=== PATIENT | male | born 1975 | race Caucasian/White ===

== ENCOUNTER 2022-12-20 20:05 | Emergency (ER) | payer OTHER ==
[2022-12-20 20:16] VITALS: BP 146/97; PULSE 75; RESP 16; TEMP 97.7; BMI 31.5
[2022-12-20] MEDS ORDERED: SODIUM CHLORIDE 1,000 ML IV ONE (20:39)
[2022-12-20] MEDS ORDERED: ACETAMINOPHEN INJECTION 100 ML IVPB ONE (20:39)
[2022-12-20] MEDS ORDERED: ACETAMINOPHEN 1000 MG/100 ML BAG IVPB ONE (20:39)
[2022-12-20 20:52] LABS: HEMOGLOBIN 14.4 G/dL (11.7-16.9); MCH 31.7 pg (25.7-33.7); MCHC 35.9 g/dl (32.0-35.9); MEAN PLT VOLUME 8.2 fl (7.5-11.1); PLATELET COUNT 160.5 10^3/uL (134-434); RBC 4.54 10^6/uL (4.00-5.60); RDW 13.1 % (11.9-15.9); WHITE BLOOD COUNT 8.5 10^3/uL (4.0-10.8)
[2022-12-20 21:09] LABS: ALBUMIN 4.1 g/dl (3.4-5.0); BILIRUBIN,TOTAL 0.8 mg/dl (0.2-1); TOT PROT 7.2 g/dl (6.4-8.2)
[2022-12-20] MEDS ORDERED: PIPERACILLIN/TAZOB 4.5 GM 4.5 GM in DEXTROSE 5%-WATER 100 ML IVPB ONE (23:29)
[2022-12-20] MEDS ORDERED: PIPERACILLIN/TAZOBACTAM 4.5 GM VIAL IVPB ONE (23:37)
[2022-12-20] MEDS ORDERED: CEFTRIAXONE 1,000 MG in DEXTROSE 5%-WATER - 50 ML IVPB ONE (23:53)
== END 2022-12-21 01:13 | disposition home or self-care (01) ==
LOC: FER 20:05
PROC: 3E033GC Introduction of Other Therapeutic Substance into Peripheral Vein, Percutaneous Approach (ICD-10-PCS; principal; 2022-12-20)
DX: K57.32 Diverticulitis of large intestine without perforation or abscess without bleeding (principal)
CPT/HCPCS: 36415; 74177-TC; 80053; 85027; 99285-25; Q9967